=== PATIENT | female | born 1930 | race African-American/Black ===

== ENCOUNTER 2019-05-05 06:11 | Emergency (ER) | payer BC, MEDICARE, OTHER ==
[~2019-05-05] VITALS: Ht 165.1 cm; Wt 59.0 kg
[2019-05-05] MEDS ORDERED: SODIUM CHLORIDE 0.9% 1,000 ML IV ONE (06:28)
[2019-05-05] MEDS ORDERED: KETOROLAC 30MG/ML VIAL IV STA (06:28)
[2019-05-05 06:58] LABS: CLARITY URINE CLOUDY (CLEAR); COLOR URINE YELLOW (YELLOW); KETONES URINE TRACE (NEGATIVE); LEUKOCYTE ESTERASE URINE NEGATIVE (NEGATIVE); NITRITE URINE NEGATIVE (NEGATIVE); OCCULT BLOOD URINE NEGATIVE (NEGATIVE); PH URINE 5.5 (4.5-8.0); PROTEIN URINE NEGATIVE (NEGATIVE); SPECIFIC GRAVITY URINE 1.016 (1.005-1.030); UROBILINOGEN URINE 0.2 E.U./dL (0.2-1.0)
[2019-05-05 07:35] LABS: HEMOGLOBIN. 12.3 g/dL (12.0-16.0); MEAN CORPUSCULAR HEMOGLOBIN 28.5 pg (28.0-32.0); MEAN CORPUSCULAR VOLUME 85.9 fL (81.0-99.0); MEAN PLATELET VOLUME 8.3 fl (7.4-10.4); PLATELET 261 x1000/uL (130-400); RED BLOOD CELL COUNT 4.31 mill/uL (4.2-5.4); RED CELL DISTRIBUTION WIDTH 15.6 % (11.6-14.6)
[2019-05-05 07:42] LABS: PROTHROMBIN TIME 10.7 sec (9.6-11.0)
[2019-05-05 08:10] LABS: PLATELET ESTIMATE NORMAL
[2019-05-05 09:55] LABS: CHLORIDE 110 mEq/L (98-107)
[2019-05-05 12:00] VITALS: BP 161/74
== END 2019-05-05 14:30 | disposition home or self-care (01) ==
LOC: ER 06:29
DX: H93.13 Tinnitus, bilateral (principal); R51 Headache; M79.604 Pain in right leg; I10 Essential (primary) hypertension; E11.9 Type 2 diabetes mellitus without complications; Z95.0 Presence of cardiac pacemaker; Z96.653 Presence of artificial knee joint, bilateral; Z79.899 Other long term (current) drug therapy
CPT/HCPCS: 36415; 71045; 80053; 81003; 85025; 85610; 96374; 99284; J1885; J7030